=== PATIENT | female | born 1985 | race Caucasian/White ===

== ENCOUNTER 2016-07-21 19:34 | Emergency (ER) | payer OTHER ==
[~2016-07-21] VITALS: Ht 165.1 cm; Wt 60.5 kg
[~2016-07-21 19:34] MED LIST: ACET325T51 PO; CARB100T6 PO; CIPR-231 PO; FLUO10CA20 PO; FLUT9.9S NS; GABA-502 PO; IBUP800T28 PO; METH750T3 PO; OMEP40CA36 PO; OXYC1TAB24 PO; PHEN-684 PO; VITA1TAB47 PO; magnesium PO
[2016-07-21 19:43] VITALS: BP 142/99; PULSE 77; RESP 16; O2SAT 95
--- NOTE | 2016-07-21 20:18 | ED.REPORT ---
HPI-General Illness Date of Service Jul 21, 2016 ED Provider: Armin Mccrary PA-C Ester is a 31-year-old female with a history of cirrhosis, Viola-Parkinson- White, colitis and fibromyalgia presented with a chief complaint of weakness. Patient complains of weakness associated with nausea, reduced appetite, chills, feeling hot/cold, heart palpitations for the last 2 years. Patient states that she "I probably having eaten 3 times in the last week" stating "it does't bother me, sometimes I just don't care to eat." Complains of sore joints, " like railroad spikes to both kneecaps". Complains of numbness at the soles of her feet. Admits alcohol use. Denies chest pain. Patient states that she no longer has a primary care provider because of missed appointments. Nursing Notes Stated Complaint: WEAK Chief Complaint: General Complaint Nursing Notes Reviewed: Yes Allergies: Coded Allergies: amitriptyline (Verified Allergy, Intermediate, FACIAL RASH, 08/23/15) lorazepam (Verified Allergy, Unknown, 10/29/15) Scheduled ([magnesium ]) 1 TAB PO DAILY B Complex with Vitamin C (Vitamin B-Complex & C) 1 Each Tablet.er 1 EACH PO DAILY Carbamazepine Chew (Carbamazepine Chew) 100 Mg Chew 200 MG PO HS Ciprofloxacin (Cipro) 500 Mg Tablet 500 MG PO BID Fluoxetine (Fluoxetine) 10 Mg Capsule 10 MG PO DAILY Fluticasone Propionate (Flonase Allergy Relief) 50 Mcg/Actuation Hodgen.susp 2 SPRAYS NS DAILY Gabapentin (Gabapentin) 300 Mg Capsule 600 MG PO TID Ibuprofen (Ibuprofen) 800 Mg Tablet 800 MG PO TIDWM Omeprazole (Omeprazole) 40 Mg Capsule.dr 40 MG PO DAILY Ondansetron ODT (Ondansetron ODT) 8 Mg Tab.rapdis 8 MG PO TID Scheduled PRN Acetaminophen (Acetaminophen) 325 Mg Tablet 975 MG PO QID PRN PRN For Pain Ibuprofen (Ibuprofen) 800 Mg Tablet 800 MG PO TID PRN PRN For Pain Methocarbamol (Methocarbamol) 750 Mg Tablet 750 MG PO TID PRN PRN For Pain Phenazopyridine (Pyridium) 200 Mg Tablet 200 MG PO TID PRN PRN For Pain oxyCODONE-Acetaminophen 5-325 mg (oxyCODONE-Acetaminophen 5-325 mg) 1 Each Tablet 2 TAB PO Q4H PRN PRN For Pain General Time Seen by MD: 20:06 Chief Complaint Weakness Past Medical History Past Medical History Pyelonephritis WPW fibro myalgia Reports: Urinary tract infection Past Surgical History Cardiac ablation Smoking History Current Every Day Smoker Social History Alcohol Use: Denies alcohol use Drug Use: In recovery, IV drugs, THC Ambulatory Status Independent Review of Systems General: Admits chills, malaise. HEENT: Denies congestion, headache, sore throat. Respiratory: Admits dyspnea, cough, shortness of breath, wheezing. Cardiovascular: Admits palpitations, denies Gastrointestinal: Admits vomiting, diarrhea, abdominal pain. Genitourinary: Denies frequency, urgency, dysuria, hematuria. Otherwise as noted in HPI. Physical Exam General: Well appearing, well developed, well nourished, no acute distress. Head: Atraumatic, normocephalic. Eyes: No scleral icterus or injection. No discharge. Vision grossly intact. ENT: Voice clear, hearing grossly intact. Respiratory: Regular rate and rhythm. Breath sounds present, clear to auscultation and equal bilaterally. No respiratory distress. No increased work of breathing, speaks in complete sentences. Cardiovascular: Regular rate and rhythm, without murmur, gallop or rub. No pedal edema. Gastrointestinal: Abdomen flat with mild to moderate tenderness in the right upper quadrant. Bowel sounds normoactive. Skin: Warm and dry. Neurological: Normal gait. Patellar and Achilles reflexes present and equal bilaterally. Moving all limbs normally. Psychological: Alert and oriented. Speech appropriate, linear and logical. Behavior appropriate. Odd affect Vital Signs Vital Signs Date Time Temp Pulse Resp B/P Pulse Ox O2 Delivery O2 Flow Rate FiO2 07/21/16 21:57 36.6 72 17 150/100 97 Room Air 07/21/16 19:43 36.9 77 16 142/99 95 Room Air Initial VS: Vital signs abnormal (elevated blood pressure) Interpretation & Diagnostics Lab Results Interpretation Result Diagram: 07/21/16203107/21/162031 Test 07/21/16 20:32 White Blood Count 7.0th/mm3 (3.8-10.1) Red Blood Count 3.99mil/mm3 (3.90-5.20) Hemoglobin 14.0g/dL (12.0-15.6) Hematocrit 40.9% (35.0-46.0) Mean Corpuscular Volume 102.5fL (81-100) Mean Corpuscular Hemoglobin 35.1pg (27.0-35.0) Mean Corpuscular Hemoglobin Concent 34.2% (32.0-37.0) Red Cell Distribution Width 13.8% (12.3-15.4) Platelet Count 267bil/L (150-400) Neutrophils (%) (Auto) 40.3% (40-74) Lymphocytes (%) (Auto) 52.4% (14-46) Monocytes (%) (Auto) 6.6% (4-12) Eosinophils (%) (Auto) 0.3% (0-5) Basophils (%) (Auto) 0.3% (0-3) Sodium Level 140mEq/L (134-144) Potassium Level 4.3mEq/L (3.5-5.2) Chloride Level 102mEq/L (97-108) Carbon Dioxide Level 25mmol/L (18-29) Blood Urea Nitrogen 5mg/dL (6-20) Creatinine 0.59mg/dL (0.57-1.00) Estimat Glomerular Filtration Rate 170mL/min (>59) Glucose Level 126mg/dL (60-99) Calcium Level 9.1mg/dL (8.5-10.1) Magnesium Level 1.7mg/dL (1.6-2.6) Total Bilirubin 0.3mg/dL (0.0-1.2) Aspartate Amino Transf (AST/SGOT) 42U/L (0-50) Alanine Aminotransferase (ALT/SGPT) 28U/L (0-32) Alkaline Phosphatase 83U/L (25-150) Total Protein 7.8g/dL (6.4-8.4) Albumin 4.2g/dL (3.4-5.0) Hold Garza Top Tube Received (Received) Re-Eval/Medical Decision Med Decision/Clinical Course 31-year-old female with a reported history of cirrhosis, Zlbeg-Jgzoegcho-Jquzp, colitis, thyroid myalgia presents with complaint of weakness for the last 2 years associated with nausea reduced appetite chills, feeling hot and cold, heart palpitations, joint pain. Review of symptoms is diffusely positive. Patient states that she was dismissed by her primary care provider due to missing 20 appointments. She wishes to have labs performed. Physical examination reveals some mild right upper quadrant tenderness. Motor function appears normal in that she ambulates well, moves all her limbs normally. Patellar and Achilles reflexes are intact. CBC and CMP are unremarkable, with mild variations from normal that I do not believe are clinically relevant. On discussing lab results with the patient, she wishes to be discharged. I do not believe that her symptoms are caused by an immediately dangerous condition and specifically reassured regarding advanced Guillain-Vance. Considering the long duration of her symptoms I am not very concerned about acute process. Provided referral for primary care follow-up as well as emergency return precautions. Patient verbalizes understanding of and consent to the plan. Discharge & Departure Primary Impression: Weakness Disposition: Home Discharge Condition All VS Reviewed: Yes Condition: Stable Additional Instructions: Evaluation in the emergency department for generalized weakness consists of history, physical examination and blood tests all of which are reassuring that she or her symptoms are unlikely to be caused by an immediately dangerous condition. I believe you are stable and safe to go home. I will write a prescription for Zofran to help with nausea. I will also give a referral for primary care provider. Please contact them to establish care. Be sure to make all your appointments. Return to emergency department for any new or worsening symptoms. Referrals: Cristina Michael PA-C (PCP) EDSupervising Provider for APC: Thad Ovalles MD copies to: Cristina Michael PA-C, Seth PA-C Jul 21, 2016 20:18
[2016-07-21 20:42] LABS: BASOPHILS % (AUTO) 0.3 % (0-3); EOSINOPHILS % (AUTO) 0.3 % (0-5); MONOCYTES % (AUTO) 6.6 % (4-12); Mean Corpuscular Hemoglobin 35.1 pg (27.0-35.0); Mean Corpuscular Volume 102.5 fL (81-100); NEUTROPHILS % (AUTO) 40.3 % (40-74); Platelet Count 267 bil/L (150-400)
[2016-07-21] MEDS ORDERED: Ondansetron 8 mg ODT Tablet PO ONE (20:55)
[2016-07-21 21:05] LABS: Magnesium 1.7 mg/dL (1.6-2.6)
[2016-07-21] MEDS ORDERED: ONDA8TAB10 PO (21:31)
[2016-07-21 21:57] VITALS: BP 150/100; PULSE 72; RESP 17; O2SAT 97
== END 2016-07-21 22:04 | disposition home or self-care (01) ==
LOC: SED 19:34
DX: R53.1 Weakness (principal); R11.0 Nausea; R00.2 Palpitations; R20.0 Anesthesia of skin; M79.7 Fibromyalgia; F17.200 Nicotine dependence, unspecified, uncomplicated; Z87.440 Personal history of urinary (tract) infections; Z88.5 Allergy status to narcotic agent; Z88.8 Allergy status to other drugs, medicaments and biological substances